=== PATIENT | female | born 1935 | race Caucasian/White ===

== ENCOUNTER 2017-02-09 08:42 | Emergency (ER) | payer MEDICARE, BC ==
--- NOTE | 2017-02-17 19:43 | ER ---
ADMIT: 02/09/2017 RM/LOC: ER [facility] MR#: [id number] [id number] [place] [address] [place] [id number] Emergency Room Report SEX: F AGE: 81 : 1935 DATE: 02/09/2017 CHIEF COMPLAINT: Lightheaded and nauseous. HISTORY OF PRESENT ILLNESS: The patient is an 81-year-old female with a diagnosis of CHF and paroxysmal atrial fibrillation, who comes in from home with symptoms that began approximately 5 a.m. this morning. She had a normal day yesterday, felt fine when she went to bed, but when she woke this morning, she had symptoms that have been present since onset. Her primary complaints are she feels extremely weak all over and is nauseous, but has not been vomiting. She denies any chest pain. She does have some slight increased shortness of breath but no new cough. She denies any recent illness. No fevers or chills. No change in bowel or bladder function. PAST MEDICAL HISTORY: Significant for CHF and paroxysmal atrial fibrillation. PAST SURGICAL HISTORY: She has had cardiac catheterizations and has a pacemaker, dual chamber, [place] device. MEDICATIONS: She is currently takin. Xarelto. 2. Entresto. 3. Lasix. 4. I believe Toprol. ALLERGIES: SEE NURSE'S NOTE. SOCIAL HISTORY: She lives with her . Denies smoking, drug, or alcohol use. PHYSICAL EXAMINATION: See T-sheet for complete physical exam. EMERGENCY DEPARTMENT COURSE: The patient presented, she was symptomatic. We went ahead and hooked her up to the monitor and she was what appeared to be in a rapid sinus rhythm with a rate of approximately 115. She then went into a rhythm that appeared to be a V-tach rhythm with a rate of also about 120 and she would be in runs of approximately 5-20 seconds in that. During that time, she had no loss of consciousness, was denying chest pain, but did feel nauseous and weak in general. While in the ER, we checked her cardiac enzymes and electrolytes which were normal. Chest x-ray showed nothing acute and we had her pacemaker interrogated by the pacer mill representative. Based on the pacer interrogation, it appears that she was going into her atrial fibrillation rhythm and the device ended up pacing her ventricles at an accelerated rate and shortly after she was here, that abnormal rhythm terminated and she was back in her sinus rhythm here. She was only ADMIT: 02/09/2017 RM/LOC: ER [facility] MR#: [id number] [id number] [place] [address] [place] [address] Emergency Room Report SEX: F AGE: 81 : 1935 symptomatic for the first 10-15 minutes she was here and the remainder of her stay, she was asymptomatic and felt like her baseline. I discussed the case with Dr. Aguirre and at this time, we will be placing her on amiodarone 400 mg b.i.d. for 2 weeks and then changing her to 200 mg daily and she is to follow up with Dr. Aguirre's office. She was also given a prescription for Compazine and she is told she should return to the ER if she has any concerning symptoms. DIAGNOSES: 1. Congestive heart failure. 2. Atrial fibrillation with rapid ventricular paced rhythm. 3. Nausea. Holger Cordova MD/ david JOB #: [id number] CC: Holger Cordova MD, Attending Physician Camelia Strong MD, Family Physician
== END 2017-02-09 11:10 | disposition home or self-care (01) ==
LOC: ER 08:42
DX: I48.91 Unspecified atrial fibrillation (principal); R11.0 Nausea; Z95.0 Presence of cardiac pacemaker; Z79.01 Long term (current) use of anticoagulants; Z88.1 Allergy status to other antibiotic agents; Z88.2 Allergy status to sulfonamides; Z88.8 Allergy status to other drugs, medicaments and biological substances; Z79.899 Other long term (current) drug therapy